=== PATIENT | male | born 1940 | race Caucasian/White ===

== ENCOUNTER 2023-04-05 06:27 | Day surgery (SDC) | payer MEDICARE, OTHER ==
[2023-04-05] MEDS ORDERED: LACTATED RINGERS 1,000 ML IV ONE ×2 (06:30→09:48)
--- NOTE | 2023-04-05 06:51 | ANESTHESIA ---
Pre-Anesthesia VS, & Labs - Diagnosis positive FIT - Procedure colonoscopy Vital Signs: Temp Pulse Resp BP Pulse Ox O2 Flow Rate 36.2 C L 68 17 150/71 H 98 04/05/23 06:38 04/05/23 06:38 04/05/23 06:38 04/05/23 06:38 04/05/23 06:38 Height: 6 ft Weight (kg): 89.5 kg Body Mass Index: 26.7 BMI Classification: Overweight - NPO >8 hours Last Fluid Intake: am prep - Lab Results Lab results reviewed: Yes Home Medications and Allergies Losartan [Cozaar] 50 mg PO DAILY 01/06/23 Rosuvastatin Calcium [Crestor] 40 mg PO DAILY 01/06/23 metFORMIN [Glucophage] 500 mg PO BIDWM 01/06/23 Allergies/Adverse Reactions: Allergies Allergy/AdvReac Type Severity Reaction Status Date / Time No Known Drug Allergies Allergy Verified 04/02/23 14:15 Anes History & Medical History - Anesthetic History Anesthesia Complications: reports: No previous complications Family history of Anesthesia Complications: Denies Family history of Malignant Hyperthermia: Denies - Medical History Cardiovascular: reports: High cholesterol Pulmonary: reports: None Gastrointestinal: reports: None Urinary: reports: None, Chronic bladder infection Musculoskeletal: reports: None Endocrine/Autoimmune: reports: Type 2 diabetes Blood Disorders: reports: None Skin: reports: None Smoking Status: Never smoker - Surgical History General: reports: Colonoscopy Eyes Ears Nose Throat (EENT): reports: Tonsil/Adenoidectomy Exam General: Alert, Oriented x3, Cooperative Dental: WNL Neck Mobility: Normal Mallampati classification: II Respiratory: Lungs clear Cardiovascular: Regular rate Neurological: Normal speech Mental/Cognitive Status: Alert/Oriented X3, Normal for patient Cognitive Status: Within normal limits Plan Anesthesia Type: Total IV Consent for Procedure(s) Verified and Reviewed: Yes Code Status: Attempt Resuscitation ASA classification: 2-Mild systemic disease Is this case an emergency?: No
[2023-04-05] MEDS ORDERED: PROPOFOL 500 MG/50 ML 500 MG/50 ML VIAL ONE (07:02)
[2023-04-05] MEDS ORDERED: MIDAZOLAM 2 MG/2 ML VIAL ONE (07:10)
[2023-04-05] MEDS ORDERED: PROPOFOL 200 MG/20 ML VIAL IVP ONE ×2 (08:10→08:24)
[2023-04-05] MEDS ORDERED: LACTATED RINGERS 300 ML IV ONE (08:50)
--- NOTE | 2023-04-05 09:35 | ANESTHESIA POST OP EVALUATION ---
Anesthesia Post Eval - Post Anesthesia Eval Vitals: Last Vital Signs Temp 36.2 C L 04/05/23 09:19 Pulse 63 04/05/23 09:19 Resp 21 04/05/23 09:19 BP 121/56 L 04/05/23 09:19 Pulse Ox 97 04/05/23 09:19 O2 Flow Rate CV Function Including HR & BP: Stable Pain Control: Satisfactory Nausea & Vomiting: Negative Mental Status: Baseline Respiratory Status: Airway Patent Hydration Status: Satisfactory Anesthesia Complications: None
[2023-04-05] MEDS ORDERED: ACETAMINOPHEN 500 MG TABLET PO ONE (09:43)
[2023-04-05 10:40] VITALS: BP 133/72
== END 2023-04-05 06:28 | disposition home or self-care (01) ==
LOC: SDS 06:27
PROVIDERS: ATTEND Surgery
PROC: 0DBL8ZX Excision of Transverse Colon, Via Natural or Artificial Opening Endoscopic, Diagnostic (ICD-10-PCS; 2023-04-05)
PROC: 0DBK8ZX Excision of Ascending Colon, Via Natural or Artificial Opening Endoscopic, Diagnostic (ICD-10-PCS; principal; 2023-04-05 07:30)
DX: R19.5 Other fecal abnormalities (principal); D12.2 Benign neoplasm of ascending colon; D12.3 Benign neoplasm of transverse colon; I10 Essential (primary) hypertension; E11.9 Type 2 diabetes mellitus without complications; Z79.84 Long term (current) use of oral hypoglycemic drugs
CPT/HCPCS: 45385; A9270; J7120